=== PATIENT | female | born 1975 | race Two or more races ===

== ENCOUNTER 2023-10-23 08:28 | Emergency (ER) | payer OTHER ==
[~2023-10-23] VITALS: Ht 154.9 cm; Wt 73.9 kg
[2023-10-23] MEDS ORDERED: COZAAR50 MG PO (08:49)
[2023-10-23] MEDS ORDERED: TOPROL XL50 M1 PO (08:49)
[2023-10-23 10:12] LABS: HEMATOCRIT 37.2 % (36.0-45.00); HEMOGLOBIN 12.4 g/dL (12.0-15.00); MEAN CORPUSCULAR HEMOGLOBIN 27.3 pg (27.00-32.0); MEAN CORPUSCULAR HGB CONC 33.3 g/dl (32.0-36.0); PLATELET COUNT 316 K/uL (150-450); RED BLOOD COUNT 4.54 M/uL (4.00-6.00); RED CELL DISTRIBUTION WIDTH 14.6 % (11.5-14.5)
[2023-10-23 10:20] LABS: PH,URINE 7.5 (5.0-8.0); URINE APPEARANCE Clear; URINE BILIRRUBIN Negative (NEGATIVE); URINE BLOOD Negative; URINE COLOR Yellow; URINE GLUCOSE Negative (NEGATIVE); URINE LEUKOCYTE Small; URINE NITRATE Negative; URINE PROTEIN Negative (NEGATIVE); URINE UROBILINOGEN 0.2 E.U./dl
[2023-10-23 10:24] LABS: URINE BACTERIA 239.3 uL (0.0-1933); URINE RBC 14.5 uL (0.0-20.8); URINE WBC 69.7 uL (0.0-23.2)
[2023-10-23] MEDS ORDERED: FLUCONAZOLE150 MG PO (10:48)
[2023-10-23] MEDS ORDERED: NITROFURANTOIN100 MG PO (10:48)
== END 2023-10-23 10:55 | disposition home or self-care (01) ==
LOC: ER 08:29
PROVIDERS: General Practice
DX: N39.0 Urinary tract infection, site not specified (principal); I10 Essential (primary) hypertension; Z91.013 Allergy to seafood